=== PATIENT | female | born 1990 | race Caucasian/White ===

== ENCOUNTER 2017-02-17 23:23 | Emergency (ER) | payer OTHER ==
[2017-02-18 00:58] LABS: Hematocrit 36 % (35-47); Hemoglobin 11.9 g/dl (12.0-16.0); Mean Corpuscular HGB Conc 33 g/dl (31-36); Mean Corpuscular Hemoglobin 27 pg (27-31); Mean Corpuscular Volume 82 fL (80-97); Mean Platelet Volume 7 um3 (7.4-10.4); Red Blood Count 4.42 10^6/ul (4.0-5.4); Red Cell Distribution Width 16 % (10.5-15); White Blood Count 11.7 10^3/ul (3.5-10.8)
[2017-02-18] MEDS ORDERED: Ketorolac INJ* 30 MG/ML 1 ML VIAL IV PUSH ONE (01:05)
[2017-02-18 01:11] LABS: Albumin 3.9 g/dL (3.2-5.2); BUN/Creatinine Ratio 26.4 (8-20); Calcium 9.1 mg/dL (8.6-10.3); EGFR African American 125.9 (>60); EGFR Non-African American 97.9 (>60); Globulin 3.5 g/dL (2-4); Potassium 3.7 mmol/L (3.5-5.0); Total Bilirubin 0.4 mg/dL (0.2-1.0); Total Protein 7.4 g/dL (6.4-8.9)
[2017-02-18] MEDS ORDERED: Ondansetron INJ* 2 MG/ML VIAL IV ONE (01:18)
--- NOTE | 2017-02-18 01:18 | ED ---
- HPI Summary HPI Summary: 26 female presents to ED with complaints of vaginal bleeding and painful cramping in lower abdomen associated with her miscarriage. Patient states she has been miscarrying for the past 10 days. Was diagnosed on 02/14/17 by OBGYN by ultrasound, HCG levels and symptoms. However the bleeding and pain has increased today/tonight and she was unable to get relief. Patient has been taking ibuprofen without relief. With last dose being 6 hours ago, 800mg. Also tried heating pad. Patient denies any other vaginal discharge and itching. States she has just been on the toilet. Unknown how many pads/hour due to patient just sitting on toilet. Admits to passing clots. Patient was estimated ~ 10weeks based on LMP being November 19. Has . This is her first time being and first miscarriage. No other complaints at this time. Is here for pain relief. No PMHx. No medications, drug or alcohol use. Denies feeling lightheaded or dizzy. Patient has been eating and drinking normally. OBGYN is Naheed Mcdowell. - History of Current Complaint Chief Complaint: EDVaginalBleeding Stated Complaint: VAGINAL PAIN/BLEEDING Time Seen by Provider: 02/18/17 00:22 Hx Obtained From: Patient Chief Complaint: Vaginal Bleeding Onset/Duration: Started Hours Ago, Still Present, Worse Since Timing: Constant, Intermittent Severity: Moderate Current Severity: Moderate Pain Intensity: 6 Location of Pain: Suprapubic Character: Cramping Aggravating Factors: Nothing Alleviating Factors: Nothing - Assessment Hx Now: No - miscarriage Hx : 1 Hx Para: 0 Vaginal Bleeding Amount: Large Hx Last Menstrual Period: 11/19/16 Contraction Intensity: Moderate Hx Hysterectomy: No History of STI/STD: No - Allergies/Home Medications Allergies/Adverse Reactions: Allergies Allergy/AdvReac Type Severity Reaction Status Date / Time No Known Allergies Allergy Verified 05/09/12 10:36 PMH/Surg Hx/FS Hx/Imm Hx Endocrine/Hematology History: Denies: Hx Diabetes Cardiovascular History: Denies: Hx Hypertension Respiratory History: Denies: Hx Asthma - Surgical History Surgery Procedure, Year, and Place: T & A - Immunization History Immunizations Up to Date: Yes Infectious Disease History: Yes Infectious Disease History: Denies: Traveled Outside the [place] in Last 30 Days - Family History Known Family History: Positive: None - Social History Alcohol Use: Occasionally Substance Use Type: Reports: None Smoking Status (MU): Never Smoked Tobacco Review of Systems Constitutional: Negative Cardiovascular: Negative Respiratory: Negative Positive: Abdominal Pain, Nausea Positive: other - vaginal bleeding, miscarriage All Other Systems Reviewed And Are Negative: Yes Physical Exam - Physical Exam Triage Information Reviewed: Yes Vital Signs On Initial Exam: BP: 171/83 HR: 101 Resp: 22 Temp: 97.9 O2:98 elevated pressure noted, patient is in significant pain. once pain was under control, BP and HR increased, back to normal ranges. BP 121/63 HR 88bpm Vital Signs Reviewed: Yes Appearance: Positive: Well-Appearing, Well-Nourished, Pain Distress - moderate Skin: Positive: Warm, Skin Color Reflects Adequate Perfusion, Dry. Negative: Cold, Soft, Cyanosis @, Jaundiced, Pale, Erythema @ Head/Face: Positive: Normal Head/Face Inspection Eyes: Positive: Conjunctiva Clear ENT: Positive: Hearing grossly normal Neck: Positive: Supple, Nontender Respiratory/Lung Sounds: Positive: Clear to Auscultation, Breath Sounds Present. Negative: Rales, Rhonchi, Wheezes Cardiovascular: Positive: Normal, RRR, Pulses are Symmetrical in both Upper and Lower Extremities. Negative: Murmur, Rub Abdomen Description: Positive: No Organomegaly, Soft, Other: - discomfort with palpation lower abdomen/ suprapubic. patient deferred pelvic exam. no concern for other etiology. Negative: Bruit, CVA Tenderness (R), CVA Tenderness (L), Distended, Guarding Bowel Sounds: Positive: Present Musculoskeletal: Positive: Normal, Strength/ROM Intact Neurological: Positive: Normal, Sensory/Motor Intact, Alert, Oriented to Person Place, Time, NV Bundle Intact Distally, Normal Gait Psychiatric: Positive: Affect/Mood Appropriate - Yesika Coma Scale Eye: 4 - Spontaneous Motor: 6 - Obeys Commands Verbal: 5 - Oriented Coma Scale Total: 15 Diagnostics - Vital Signs Vital Signs Temp Pulse Resp BP Pulse Ox 02/17/17 23:26 97.9 F 101 22 171/83 98 - Laboratory Lab Results: Lab Results 02/18/17 02/18/17 Range/Units 00:45 00:45 WBC 11.7 H (3.5-10.8) 10^3/ul RBC 4.42 (4.0-5.4) 10^6/ul Hgb 11.9 L (12.0-16.0) g/dl Hct 36 (35-47) % MCV 82 (80-97) fL MCH 27 (27-31) pg MCHC 33 (31-36) g/dl RDW 16 H (10.5-15) % Plt Count 300 (150-450) 10^3/ul MPV 7 L (7.4-10.4) um3 Neut % (Auto) 67.7 (38-83) % Lymph % (Auto) 24.6 L (25-47) % [place] % (Auto) 5.4 (1-9) % Eos % (Auto) 1.8 (0-6) % Baso % (Auto) 0.5 (0-2) % Absolute Neuts (auto) 7.9 H (1.5-7.7) 10^3/ul Absolute Lymphs (auto) 2.9 (1.0-4.8) 10^3/ul Absolute Monos (auto) 0.6 (0-0.8) 10^3/ul Absolute Eos (auto) 0.2 (0-0.6) 10^3/ul Absolute Basos (auto) 0.1 (0-0.2) 10^3/ul Absolute Nucleated RBC 0 10^3/ul Nucleated RBC % 0 Sodium 135 (133-145) mmol/L Potassium 3.7 (3.5-5.0) mmol/L Chloride 103 (101-111) mmol/L Carbon Dioxide 24 (22-32) mmol/L Anion Gap 8 (2-11) mmol/L BUN 19 (6-24) mg/dL Creatinine 0.72 (0.51-0.95) mg/dL Est GFR ( Amer) 125.9 (>60) Est GFR (Non-Af Amer) 97.9 (>60) BUN/Creatinine Ratio 26.4 H (8-20) Glucose 101 H (70-100) mg/dL Calcium 9.1 (8.6-10.3) mg/dL Total Bilirubin 0.40 (0.2-1.0) mg/dL AST 12 L (13-39) U/L ALT 11 (7-52) U/L Alkaline Phosphatase 66 (34-104) U/L Total Protein 7.4 (6.4-8.9) g/dL Albumin 3.9 (3.2-5.2) g/dL Globulin 3.5 (2-4) g/dL Albumin/Globulin Ratio 1.1 (1-3) Beta HCG, Quant Pending Result Diagrams: 02/18/17 00:45 02/18/17 00:45 Lab Statement: Any lab studies that have been ordered have been reviewed, and results considered in the medical decision making process. Re-Evaluation - Re-Evaluation First Eval Re-Evaluation Time: 02:00 Change: Improved - at significant relief after medication Course/Dx - Course Course Of Treatment: repeat lab work obtained. able to compare. HCG continuing to decrease. given pain management while in ED. Had relief. Deferred pelvic exam twice due to discomfort. Denied urinary/genitalia symptoms and STD history. Stable vitals and lab values, does not appear to be hemorrhaging. Appears to be experiencing an . 02/14/17 diagnosed w/ threatened at [facility]. Denies currently feeling lightheaded, dizzy. Wore pad while in ED that did not soak through during stay. Last U/S was on 02/14/17. No concern for other etiology at this time. Spoke with Dr Diaz and Dr Pickens who agrees with plan. Follow up with OBGYN/PCP repeat HCG and u/s. Given pain management to take at home. recommended position,heating pad. Continue use of pads. Aware of worsening signs and symptoms to watch out for and return if occur. No concern for anemia or hypovolemia at this time. Normal labs. Suggested eating iron rich foods. Increase fluid intake. Patient agrees and understands plan. All questions were answered. - Differential Diagnosis/HQI/PQRI: Incomplete , Threatened , Early , UTI, Vaginal Bleeding - Diagnoses Provider Diagnoses: Miscarriage - Provider Notifications Discussed Care Of Patient With: Dr Celio Bonilla Time Discussed With Above Provider: 01:40 Instructed by Provider To: Have Pt Call For Appt. - if not hemorrhaging and stable, have follow up with OBGYN Discharge - Discharge Plan Condition: Improved Disposition: HOME Prescriptions: oxyCODONE/Acetamin 5/325 MG* [Percocet 5/325 TAB*] 1 tab PO Q4H PRN #6 tab MDD 3 PRN Reason: Pain Patient Education Materials: Miscarriage (ED) Referrals: Hoang Gomes MD [Primary Care Provider] - Luciano Pickens MD [Medical Doctor] - Additional Instructions: Take prescribed pain medication as needed for pain. Do not drive while taking this. Supplement with ibuprofen. Do not take any ibuprofen until tomorrow evening. Drink plenty of fluids, recommend eating iron rich foods. Follow up and make an appointment with OBGYN tomorrow. If symptoms persist or new symptoms develop such as increasing pain. dizziness, lightheaded, faint, hemorrhaging please return to ED immediately.
[2017-02-18] MEDS ORDERED: Morphine INJ* 2 MG/ML 1 ML CARPUJECT IV ONE (01:42)
[2017-02-18 01:44] LABS: Urine Bacteria Absent (Absent); Urine Bilirubin Negative (Negative); Urine Glucose Negative (Negative); Urine Nitrite Negative (Negative)
[2017-02-18] MEDS ORDERED: NS 0.9% 1000 ML* 1,000 ML IV ONE (01:51)
[2017-02-18] MEDS ORDERED: oxyCODONE/Acetamin 5/325 MG* TAB PO ONE (01:54)
[2017-02-18 02:07] VITALS: BP 121/63
== END 2017-02-18 03:00 | disposition home or self-care (01) ==
LOC: ED 23:23
DX: O03.9 Complete or unspecified spontaneous abortion without complication (principal); R10.9 Unspecified abdominal pain; R11.0 Nausea; N93.9 Abnormal uterine and vaginal bleeding, unspecified
CPT/HCPCS: 36415; 80053; 81003; 81015; 84702; 85025; 86850; 86900; 86901; 96374; 96375; 99282; A9270-GY; J1885; J2405

== ENCOUNTER 2020-01-06 10:45 | Inpatient (IN) ==
[2020-01-06] MEDS ORDERED: Lactated Ringers 1000 ml BAG 1,000 ML IV ONE (11:32)
[2020-01-06] MEDS ORDERED: Lactated Ringers 1000 ml BAG 1,000 ML IV SCH (12:00)
[2020-01-06 12:51] LABS: Platelet Count 281 10^3/ul (150-450)
[2020-01-06 12:52] LABS: ABS Basophils 0.1 10^3/ul (0-0.2); ABS Eosinophils 0.1 10^3/ul (0-0.6); ABS Lymphocytes 2.2 10^3/ul (1.0-4.8); ABS Monocytes 0.8 10^3/ul (0-0.8); ABS Neutrophils 7.4 10^3/ul (1.5-7.7); Hematocrit 35 % (35-47); Hemoglobin 11.4 g/dL (12.0-16.0); Lymphocyte % 20.7 %; Mean Corpuscular HGB Conc 33 g/dL (31-36); Mean Corpuscular Hemoglobin 26 pg (27-31); Mean Corpuscular Volume 80 fL (80-97); Mean Platelet Volume 8.6 fL (7.4-10.4); Nucleated Red Blood Cells % 0.1; Platelet Count 275 10^3/uL (150-450); Red Blood Count 4.37 10^6 /uL (3.70-4.87); Red Cell Distribution Width 17 % (10-15); White Blood Count 10.5 10^3/uL (3.5-10.8)
[2020-01-06 13:07] LABS: Albumin 3.4 g/dL (3.2-5.2); Albumin/Globulin Ratio 0.9 (1-3); BUN/Creatinine Ratio 20.3 (8-20); Calcium 9.5 mg/dL (8.6-10.3); EGFR African American 145.8 (>60); EGFR Non-African American 120.5 (>60); Globulin 3.9 g/dL (2-4); Potassium 4.1 mmol/L (3.5-5.0); Total Bilirubin 0.4 mg/dL (0.2-1.0); Total Protein 7.3 g/dL (6.4-8.9)
[2020-01-06 13:21] LABS: Activated Partial Thrombo Time 24.3 seconds (26.0-38.0); Fibrinogen 618.5 mg/dL (110.8-404.3); INR 0.91 (0.82-1.09)
[2020-01-06 13:34] LABS: Schistocytes ABSENT
[2020-01-06 13:50] LABS: Urine Benzodiazepine Screen None Detected (None Detect); Urine Cannabinoids Screen None Detected (None Detect); Urine Opiates Screen None Detected (None Detect)
[2020-01-06] MEDS ORDERED: Promethazine INJ(RESTRICTED) 25 MG/ML 1 ml VIAL IV ONE (22:13)
[2020-01-06] MEDS ORDERED: Morphine 10 MG/ML VIAL (1 ml) IV ONE (22:20)
[2020-01-07] MEDS ORDERED: Oxytocin in LR 20 UNITS/1,000 ML BAG IVPB SCH (14:00)
[2020-01-07] MEDS ORDERED: OBEPIDURAL 250 ML EPIDURAL ONE (18:27)
[2020-01-07] MEDS ORDERED: Sodium Citrate/Citric Acid LIQ 15 ML UDC PO PRN (18:57)
[2020-01-07] MEDS ORDERED: Lactated Ringers 1000 ml BAG 1,000 ML IV ONE (18:57)
[2020-01-07] MEDS ORDERED: Phenylephrine 40 mcg/mL 10mL (400mcg) SYRINGE IV PUSH PRN ×2 (18:57)
[2020-01-07] MEDS ORDERED: EPHEDrine (Pressors) 50 MG/ML VIAL IV PUSH PRN ×2 (18:57)
[2020-01-07] MEDS ORDERED: OBEPIDURAL 250 ML EPIDURAL SCH (19:00)
[2020-01-07] MEDS: Lactated Ringers 1000 ml BAG 1,000 ML IV SCH ×2 (19:54→21:00)
[2020-01-08] MEDS: Lactated Ringers 1000 ml BAG 1,000 ML IV SCH (05:46)
[2020-01-08] MEDS ORDERED: Lidocaine 2% w/ EPI 1:200,000 MPF 20 ML SDV VIAL ONE ×3 (09:03→11:54)
[2020-01-08] MEDS ORDERED: ceFOXitin 2 GM IVPREMIX 2 GM/50 ML BAG ONE (10:34)
[2020-01-08] MEDS ORDERED: Morphine PF AMP (0.5MG/ML) 5 MG/10 ML AMP ONE (10:52)
[2020-01-08] MEDS ORDERED: fentaNYL 100 mcg/2 ml 50 MCG/ML VIAL ONE ×2 (10:52→11:47)
[2020-01-08] MEDS ORDERED: Oxytocin 10 UNITS/ML 1 ML VIAL ONE (10:52)
[2020-01-08] MEDS ORDERED: Chloroprocaine 3% 20 ml VIAL ONE (10:53)
[2020-01-08] MEDS ORDERED: Ketamine HCL 50 mg/ml 10 ml VIAL (500 MG) ONE (11:41)
[2020-01-08] MEDS ORDERED: Naloxone 0.4 mg VIAL 0.4 mg/ml 1 ml VIAL IV PRN ×2 (12:15→12:16)
[2020-01-08] MEDS ORDERED: Ondansetron 4 mg VIAL 2 MG/ML 2 ml VIAL IV PRN ×2 (12:15→12:16)
[2020-01-08] MEDS ORDERED: fentaNYL 100 mcg/2 ml 50 MCG/ML VIAL IV PRN (12:15)
[2020-01-08] MEDS ORDERED: oxyCODONE/Acetamin 5/325 mg TAB PO PRN ×2 (12:16)
[2020-01-08] MEDS ORDERED: Scopolamine PATCH Remove NOTE PATCH OFF PRN (12:16)
[2020-01-08] MEDS ORDERED: diPHENhydraMINE IV 50 MG/ML 1 ml VIAL (BENADRYL) IV PRN (12:16)
[2020-01-08] MEDS ORDERED: Glycerin ADULT 2.4 gm SUPP PR PRN (12:32)
[2020-01-08] MEDS ORDERED: Dibucaine 1% OINT 28.35 GM TUBE PR PRN (12:32)
[2020-01-08] MEDS ORDERED: Witch Hazel PAD JAR TOPICAL PRN (12:32)
[2020-01-08] MEDS ORDERED: Lactated Ringers 1000 ml BAG 1,000 ML IV SCH (13:00)
[2020-01-08] MEDS ORDERED: Enoxaparin 40 MG/0.4 ML SYR SUBCUT ONE (23:30)
[2020-01-09 07:24] LABS: ABS Eosinophils 0.1 10^3/ul (0-0.6); ABS Lymphocytes 1.5 10^3/ul (1.0-4.8); ABS Monocytes 0.5 10^3/ul (0-0.8); ABS Neutrophils 7.8 10^3/ul (1.5-7.7); Eosinophil % 1.1 %; Hematocrit 27 % (35-47); Hemoglobin 9.1 g/dL (12.0-16.0); Lymphocyte % 14.9 %; Mean Corpuscular HGB Conc 33 g/dL (31-36); Mean Corpuscular Hemoglobin 27 pg (27-31); Mean Corpuscular Volume 80 fL (80-97); Mean Platelet Volume 8.3 fL (7.4-10.4); Platelet Count 190 10^3/uL (150-450); Red Blood Count 3.41 10^6 /uL (3.70-4.87); Red Cell Distribution Width 17 % (10-15); White Blood Count 9.9 10^3/uL (3.5-10.8)
[2020-01-11 07:50] VITALS: BP 140/87
== END 2020-01-11 10:41 | disposition home or self-care (01) ==
LOC: MCHOBOUT 10:45 → MCHOB 11:21
PROVIDERS: ADMIT Obstetrics & Gynecology; ATTEND Obstetrics & Gynecology